=== PATIENT | female | born 1970 | race Caucasian/White ===

== ENCOUNTER 2020-06-09 16:17 | Outpatient (CLI) | payer BC, SELFPAY ==
[2020-06-09 17:10] LABS: Add Urine Microscopic? YES; Amorphous Sediment Urine Few; Appearance Urine Clear (Clear); Bacteria Urine Trace /hpf; Bilirubin Urine Negative (Negative); Blood Urine Negative (Negative); Color Urine Straw (Yellow); Glucose Urine UA Negative (Negative); Ketones Urine Negative (Negative); Leukocyte Esterase Ur 1+ LEU/UL (NEGATIVE); Nitrate Urine Negative (Negative); Protein Urine Negative (Negative); RBC Urine 0-2 /hpf (0-2); Specific Grav Ur 1.011 (1.001-1.035); Squamous Epithelial Cell Urine Occasional /hpf (Few); Urobilinogen Urine Negative mg/dL (<2.0)
== END 2020-06-09 16:18 | disposition home or self-care (01) ==
LOC: ANHLAB 16:19
PROVIDERS: PCP Physician Assistant; Visit Provider Physician Assistant
DX: R30.0 Dysuria (principal)
CPT/HCPCS: 81001; 87086

== ENCOUNTER 2020-06-21 07:01 | Outpatient (CLI) | payer BC, SELFPAY ==
--- NOTE | ~2020-06-21 | US_ITS ---
US abdomen complete EXAMINATION: US Abdomen Complete INDICATION: Abdomen pain. UTI. PROCEDURE: Realtime High Resolution abdomen ultrasound. COMPARISON: No prior studies for comparison FINDINGS: Gallbladder is surgically absent. Common bile duct measures 4 mm. Liver echotexture within normal limits without focal mass. Pancreas within normal limits. Pancreati c tail is obscured by bowel gas. Spleen is unremarkeable. Renal echotexture is within normal limits bilaterally without hydronephrosis, contour deforming mass or renal stone. Right kidney measures 10.5 cm. Left kidney measures 10.4 cm. Visualized aspects of the aorta and IVC are within normal limits. Portal vein is patent. No sonograph ic Brink's sign indicated by the technologist. IMPRESSION: 1: Unremarkable abdominal ultrasound post cholecystectomy. Reviewed, dictated and finalized at location A.
== END 2020-06-21 07:02 | disposition home or self-care (01) ==
PROVIDERS: PCP Physician Assistant; Visit Provider Physician Assistant
DX: N39.0 Urinary tract infection, site not specified (principal); R10.9 Unspecified abdominal pain
CPT/HCPCS: 76700

== ENCOUNTER 2020-07-14 13:18 | Outpatient (CLI) | payer BC, SELFPAY ==
--- NOTE | ~2020-07-14 | CT_ITS ---
EXAMINATION: CT abdomen pelvis w con EXAM DATE: 07/14/2020 14:04 INDICATION: Lower abd pain R10.30 - Lower abdominal pain, unspecified TECHNIQUE: Spiral CT of the abdomen and pelvis was performed following intravenous injection of 100 m L Omnipaque 350. Axial, coronal and sagittal images were reviewed. The dose-length product (DLP) fo r this examination was 864.01 mGy-cm. The exposure was tailored according to patient size (auto mA e xposure control), and iterative reconstruction (ASIR) was used as additional dose reduction technique . There is no prior study for comparison. FINDINGS: The liver, spleen, adrenal glands and pancreas are unremarkable. Gallbladder is unremarkab le. No biliary obstruction. Portal and splenic veins are patent. Kidneys enhance symmetrically. T here is no hydronephrosis. Fibroid uterus. The bladder is unremarkable. There is no retroperitone al or pelvic lymphadenopathy. The appendix is normal. The stomach and small bowel are unremarkable. There is expected amount of c olonic stool. No free intraperitoneal gas. The heart is normal in size. There are no pericardial or pleural effusions. The lung bases are unremarkable. Moderate to severe lumbar disc disease and mild to moderate levoscoliosis. IMPRESSION: 1. No acute intra-abdominal findings. 2. Fibroids. Reviewed, dictated and finalized at location B. CTION CONTROL COORDINATOR
== END 2020-07-14 13:19 | disposition home or self-care (01) ==
PROVIDERS: PCP Physician Assistant; Visit Provider Physician Assistant
DX: D25.9 Leiomyoma of uterus, unspecified (principal)
CPT/HCPCS: 74177; Q9967

== ENCOUNTER → 2020-10-17 10:08 | Outpatient (CLI) | payer BC, SELFPAY ==
--- NOTE | ~2020-10-17 | MM_ITS ---
EXAMINATION: MM screening nelida BI w jay HISTORY: Screening mammogram TECHNIQUE: Craniocaudal and mediolateral oblique 3-D tomosynthesis images were obtained and synthetic 2-D images were generated. CAD analysis was submitted and interpreted. COMPARISON: 08/31/2019, 07/02/2018, 06/22/2017 bilateral digital screening mammogram examinations BREAST PARENCHYMAL COMPOSITION: There are scattered areas of fibroglandular density. FINDINGS: Again noted are relatively stable benign calcifications of the breasts. Grouped microcalcif ications in the upper inner quadrant of the right breast previously featured milk of calcium on ML vi ew on diagnostic mammogram of 06/24/2016, consistent with benign process. No suspicious malignant fea tures are noted at the areas of calcification in either breast. There is no evidence of suspicious mass, calcification, or architectural distortion to suggest malig blas in either breast. There has been no suspicious interval change. IMPRESSION: 1. No mammographic evidence of malignancy. 2. Recommend routine screening mammography in one year. BI-RADS Category 2: Benign finding(s). Reviewed, dictated and finalized at location A. PRESSURE OPERATOR
== END ==
PROVIDERS: PCP Physician Assistant; Visit Provider Obstetrics & Gynecology
DX: Z12.31 Encounter for screening mammogram for malignant neoplasm of breast (principal)
CPT/HCPCS: 77063; 77067

== ENCOUNTER 2021-06-05 07:10 | Outpatient (CLI) | payer BC, SELFPAY ==
[2021-06-05 07:34] LABS: Hematocrit 45.4 % (37.0-47.0); Hemoglobin 15.6 g/dL (12.0-15.0); Mean Corpuscular HGB Conc 34.4 g/dl (32-36); Mean Corpuscular Volume 90.1 fl (80-100); Mean Platelet Volume 9.4 fl (7.4-10.4); Platelet Count Result 227 k/mm3 (150-375); Red Blood Count 5.04 M/mm3 (4.2-5.4); Red Cell Distribution Width 12.1 % (11.5-14.5); White Blood Count 6.4 K/mm3 (4.5-10.0)
[2021-06-05 08:39] LABS: Alanine Aminotransferase 32 U/L (4-35); Albumin Level 4.6 g/dL (3.5-5.1); Alkaline Phosphatase 81 U/L (38-126); Anion Gap 10 mmol/L (8-16); Aspartate Amino Transferase 32 U/L (14-36); Bilirubin,Total 0.5 mg/dL (0.2-1.3); Blood Urea Nitrogen 9 mg/dL (7-17); Carbon Dioxide 23 mmol/L (22-30); Chloride 105 mmol/L (98-107); Cholesterol 143 mg/dL (0-200); Estimated Glomerular Filt Rate > 60; Glucose 116 mg/dL (65-110); HDL Direct 60 mg/dL; Potassium 4.2 mmol/L (3.4-5.0); Sodium 138 mmol/L (137-145); Triglycerides 76 mg/dL (<150)
[2021-06-05 08:50] LABS: LDL Cholesterol Direct 61 mg/dL
[2021-06-05 09:07] LABS: Hemoglobin A1C 5.8 % (<5.7)
[2021-06-05 09:11] LABS: Thyroid Stimulating Hormone 0.998 uIU/mL (0.465-4.680)
[2021-06-05 09:48] LABS: Folic Acid > 20.0 ng/mL (2.76->20)
== END 2021-06-05 07:11 | disposition home or self-care (01) ==
PROVIDERS: PCP Physician Assistant; Visit Provider Physician Assistant
DX: Z00.00 Encounter for general adult medical examination without abnormal findings (principal); R73.9 Hyperglycemia, unspecified
CPT/HCPCS: 36415; 80053; 80061; 82607; 82746; 83036; 84443; 85027

== ENCOUNTER → 2021-11-26 15:00 | Outpatient (CLI) | payer BC, SELFPAY ==
--- NOTE | ~2021-11-26 | MM_ITS ---
EXAMINATION: MM screening nelida BI w jay HISTORY: Screening mammogram, family history of breast cancer in her mother. TECHNIQUE: Craniocaudal and mediolateral oblique 3-D tomosynthesis images were obtained and synthetic 2-D images were generated. CAD analysis was submitted and interpreted. COMPARISON: 10/17/2020, 08/31/2019, 07/02/2018 BREAST PARENCHYMAL COMPOSITION: There are scattered areas of fibroglandular density. FINDINGS: Scattered benign-appearing calcifications are present. There is no suspicious mass, calcifi cation, or architectural distortion to suggest malignancy in either breast. There has been no suspici ous interval change. IMPRESSION: 1. No mammographic evidence of malignancy. 2. Recommend routine screening mammography in one year. BI-RADS Category 2: Benign finding(s). Reviewed, dictated and finalized at location A.
== END ==
PROVIDERS: PCP Physician Assistant; Visit Provider Obstetrics & Gynecology
DX: Z12.31 Encounter for screening mammogram for malignant neoplasm of breast (principal)
CPT/HCPCS: 77063; 77067

== ENCOUNTER 2022-07-18 16:03 | Outpatient (CLI) | payer BC, SELFPAY ==
--- NOTE | ~2022-07-18 | US_ITS ---
EXAMINATION: US pelvic complete w TV DATE: 07/18/2022 17:11 INDICATION: Leiomyoma of the uterus seen on CT TECHNIQUE: Multiple transabdominal sonographic images of the pelvis were obtained. Patient did not t olerate transvaginal examination resulting in significantly limited evaluation. COMPARISON: CT, 07/14/2020 FINDINGS: The uterus measures 9.1 x 4.1 x 4.9 cm. Known uterine fibroids are not identified. The endo metrial complex is not well demonstrated. The ovaries are not visualized however no adnexal abnormali ty is seen. There is no free fluid in the pelvis. IMPRESSION: 1. Exam significantly limited by transabdominal only technique. Known uterine fibroids not identified . Reviewed, dictated and finalized at location B. SOURCE OPERATOR IMPRESSION: 1. Exam significantly limited by transabdominal only technique. Known uterine f ibroids not identified.
== END 2022-07-18 16:04 | disposition home or self-care (01) ==
PROVIDERS: PCP Physician Assistant; Visit Provider Obstetrics & Gynecology
DX: D25.9 Leiomyoma of uterus, unspecified (principal)
CPT/HCPCS: 76830; 76856

== ENCOUNTER 2023-01-20 00:30 | Emergency (ER) | payer OTHER, SELFPAY ==
[2023-01-20] VITALS (23 sets, daily range): BP systolic 95–133; BP diastolic 58–88; PULSE 76–121; RESP 14–25; TEMP 36.6; O2SAT 98–100
--- NOTE | ~2023-01-20 | CT_ITS ---
Non-contrast Head CT History: Syncope, head injury Technique: Axial non-contrast imaging of the brain was performed. Dose reduction technique was used on this scan by utilizing automated exposure control and iterative reconstruction technique. The dose -length product (DLP) was 1210.67 mGy-cm. Findings: There is no evidence of intracranial hemorrhage, mass lesion, or acute infarct. Brain par enchyma appears normal. The ventricles and subarachnoid spaces are normal in size. The calvarium ap pears normal. The visualized paranasal sinuses and mastoid air cells are clear. Impression: No significant abnormality seen. Reviewed, dictated and finalized at location . Impression: No significant abnormality seen.
--- NOTE | ~2023-01-20 | XR_ITS ---
Portable chest x-ray Comparison: None Clinical History: Syncope Findings: Lungs are clear, without focal consolidation or pleural effusion. Cardiomediastinal silho uette is stable. Bones and soft tissues are unremarkable. Impression: Normal chest. Reviewed, dictated and finalized at location M. Impression: Normal chest.
--- NOTE | 2023-01-20 01:01 | ECG_ITS ---
Measurements Intervals [place] Rate: 90 P: 52 MI: 142 QRS: 10 QRSD: 105 T: 28 QT: 345 QTc: 423 Interpretive Statements SINUS RHYTHM CONSIDER INFERIOR INFARCT, AGE INDETERMINATE ABNORMAL ECG NO PREVIOUS ECG AVAILABLE FOR COMPARISON Electronically Signed On 01-20-2023 6:31:17 CDT by Hernan Abel D.O.
[2023-01-20] MEDS: SODIUM CHLORIDE 0.9% IV 2,000 ML 999 ML IV CONT ×2 (01:29→04:31)
[2023-01-20] MEDS: TETANUS,DIPHTHERIA,AC PERTUSSIS ADULT (0.5 ML) BOOSTRIX IM (01:29)
[2023-01-20 01:32] LABS: Basophils Percent Auto 0.2 % (0.2-1.2); Eosinophils Percent Auto 0.2 % (0-4.4); Hematocrit 49.5 % (37.0-47.0); Hemoglobin 16.5 g/dL (12.0-15.0); Immature Granulocyte Absolute 0.03 K/mm3 (0.00-0.031); Immature Granulocyte Percent A 0.3 % (0-0.5); Lymphocytes Absolute Auto 1.15 K/mm3 (0.9-3.2); Lymphocytes Percent Auto 9.7 % (18.3-44.2); Mean Corpuscular HGB Conc 33.3 g/dl (32-36); Mean Corpuscular Hemoglobin 30.2 pg (26-34); Mean Corpuscular Volume 90.7 fl (80-100); Mean Platelet Volume 9.6 fl (7.4-10.4); Monocytes Absolute Auto 0.5 K/mm3 (0.1-0.6); Monocytes Percent Auto 4.5 % (2.6-8.5); Neutrophils Absolute Auto 10.1 K/mm3 (1.3-6.7); Neutrophils Percent Auto 85.1 % (45.5-73.1); Platelet Count Result 229 k/mm3 (150-375); Red Blood Count 5.46 M/mm3 (4.2-5.4); Red Cell Distribution Width 12.4 % (11.5-14.5); White Blood Count 11.9 K/mm3 (4.5-10.0)
[2023-01-20 01:42] LABS: Anion Gap 9 mmol/L (8-16); Blood Urea Nitrogen 19 mg/dL (7-17); Calcium 9.1 mg/dL (8.4-10.2); Carbon Dioxide 22 mmol/L (22-30); Chloride 104 mmol/L (98-107); Estimated CRCL calculation 82 ml/min; Estimated Glomerular Filt Rate > 60; Glucose 180 mg/dL (65-110); Sodium 135 mmol/L (137-145)
--- NOTE | 2023-01-20 02:19 | ED.GENADULT ---
HPI - General Adult General Chief complaint: Head Injury Stated complaint: syncope?, head injury Time Seen by Provider: 01/20/23 00:48 History of Present Illness HPI narrative: This is a 52-year-old female presenting ED with chief complaint of syncope and head laceration. Patient said that she got up from sleep and was feeling slightly dizzy. She sat on the toilet to have a bowel movement. She then had a syncopal event and struck the side of her head on the toilet. She then returned her baseline mental status and drove herself to the emergency department. Patient does not know her last tetanus shot was. She does not use blood thinners. Patient says that she has had diarrhea today and this felt similar in the past when she was dehydrated. Patient denies neck pain, numbness tingling weakness to any extremity, chest pain difficulty breathing abdominal pain or urinary symptoms. Related Data Home Medications Medication Instructions Recorded Confirmed Lactobacillus acidophilus 10,000 mmu cells PO DAILY 12/07/20 07/08/22 (Acidophilus capsule) calcium carbonate 600 mg calcium 600 mg PO DAILY 12/07/20 07/08/22 (1,500 mg) tablet cholecalciferol (vitamin D3) 25 25 mcg PO DAILY 12/07/20 07/08/22 mcg (1,000 unit) capsule cranberry 500 mg capsule 15,000 mg PO DAILY 12/07/20 07/08/22 dktzwwgcrwt-E-Lsveydatzpwuupozod tablet PO 12/07/20 07/08/22 500 mg-200 mg tablet nqtmsxus-wzyqpmj-hpry-lutein tablet tablet PO 12/07/20 07/08/22 vitamin B complex (B 1 tablet PO DAILY 06/21/21 07/08/22 Complex-Vitamin B12 tablet) Allergies Allergy/AdvReac Type Severity Reaction Status Date / Time Sulfa (Sulfonamide Allergy Mild HIGH FEVER Verified 01/20/23 00:59 Antibiotics) PMFSH Past Medical History Medical History Arthritis Diabetes Urinary incontinence Surgical History Surgical History H/O eye surgery History of breast surgery cyst removed History of ear surgery cyst removed History of removal of skin mole Hx of cholecystectomy Hx of removal of ovary right Family History Family History Father Heart disease Diabetes mellitus Malignant neoplasm of prostate Mother Breast cancer Heart disease Diabetes mellitus Grandparent ALS (amyotrophic lateral sclerosis) Social History Social History Smoking status: Never smoker Alcohol intake: never Substance use: never Lack of Transportation: No Lack of Food: Never True Current Housing: I Have Housing Concerned About Future Housing: No Difficulty Paying Gas/Electric Bills: No Difficulty Paying for Meds: No Currently Unemployed: No Education: Associate Degree Difficulty w/ Childcare or Family Care: No Exam Narrative: APPEARANCE: No apparent distress. Head: 5 cm laceration to the right parietal scalp region EYES: EOMI, NOSE: Atraumatic NECK: Trachea midline, no midline cervical tenderness, full range of movement without pain or paresthesias. RESPIRATORY: No increased rate of breathing Clear to auscultation CARDIOVASCULAR: RRR, no peripheral edema ABDOMINAL: Non-distended, soft nontender no guarding rebound MUSCULOSKELETAl: No obvious deformities NEURO: Alert. Cranial nerves 2-12 grossly intact. Sensation light touch, motor function cerebellar function intact for 4 extremities. Gait exam was normal. SKIN:: Warm, dry. Normal color PSYCHIATRIC: Normal affect Course Vital Signs Vital signs: Vital Signs Temperature 97.8 F 01/20/23 00:41 Pulse Rate 97 01/20/23 00:41 Respiratory Rate 16 01/20/23 00:41 Blood Pressure 95/58 L 01/20/23 00:41 Pulse Oximetry 100 01/20/23 00:41 Oxygen Delivery Room Air 01/20/23 00:41 Temperature 97.8 F 01/20/23 00:41 Pulse Rate 97
--- NOTE | 2023-01-20 04:29 | PC.NURSE ---
patient walking pulse ox 130-132, dr. spangler notified
--- NOTE | 2023-01-20 05:17 | ECG_ITS ---
Measurements Intervals [place] Rate: 90 P: 52 NM: 142 QRS: 10 QRSD: 105 T: 28 QT: 345 QTc: 423 Interpretive Statements SINUS RHYTHM CONSIDER INFERIOR INFARCT, AGE INDETERMINATE BASELINE ARTIFACT- I, II, AVR, AVL ABNORMAL ECG NO PREVIOUS ECG AVAILABLE FOR COMPARISON Electronically Signed On 01-20-2023 20:14:56 CDT by Hernan Abel D.O.
== END 2023-01-20 06:04 | disposition home or self-care (01) ==
PROVIDERS: Emergency Provider Emergency Medicine; PCP Physician Assistant
DX: R55 Syncope and collapse (principal); S01.01XA Laceration without foreign body of scalp, initial encounter; E86.0 Dehydration; Z23 Encounter for immunization; E11.9 Type 2 diabetes mellitus without complications; M19.90 Unspecified osteoarthritis, unspecified site; Z90.49 Acquired absence of other specified parts of digestive tract; R94.31 Abnormal electrocardiogram [ECG] [EKG]; W18.12XA Fall from or off toilet with subsequent striking against object, initial encounter
CPT/HCPCS: 12032; 36415; 70450; 71045; 80048; 85025; 90471; 90715; 93005; 96360; 96361; 99284; J7030

== ENCOUNTER 2023-02-04 06:52 | Outpatient (CLI) | payer OTHER, SELFPAY ==
[2023-02-04 08:21] LABS: Basophils Percent Auto 0.2 % (0.2-1.2); Eosinophils Absolute Auto 0.1 K/mm3 (0-0.3); Eosinophils Percent Auto 0.6 % (0-4.4); Hemoglobin 14.4 g/dL (12.0-15.0); Immature Granulocyte Absolute 0.04 K/mm3 (0.00-0.031); Immature Granulocyte Percent A 0.4 % (0-0.5); Lymphocytes Absolute Auto 1.94 K/mm3 (0.9-3.2); Mean Corpuscular Hemoglobin 29.3 pg (26-34); Mean Corpuscular Volume 91.6 fl (80-100); Mean Platelet Volume 10.4 fl (7.4-10.4); Monocytes Absolute Auto 1.2 K/mm3 (0.1-0.6); Monocytes Percent Auto 11.1 % (2.6-8.5); Neutrophils Absolute Auto 7.5 K/mm3 (1.3-6.7); Neutrophils Percent Auto 69.7 % (45.5-73.1); Platelet Count Result 235 k/mm3 (150-375); Red Blood Count 4.91 M/mm3 (4.2-5.4); Red Cell Distribution Width 12.2 % (11.5-14.5); White Blood Count 10.8 K/mm3 (4.5-10.0)
[2023-02-04 08:41] LABS: Alanine Aminotransferase 27 U/L (6-35); Albumin Level 4.3 g/dL (3.5-5.1); Alkaline Phosphatase 93 U/L (38-126); Anion Gap 6 mmol/L (8-16); Aspartate Amino Transferase 25 U/L (14-36); Bilirubin,Total 0.8 mg/dL (0.2-1.3); Blood Urea Nitrogen 8 mg/dL (7-17); Calcium 9.1 mg/dL (8.4-10.2); Carbon Dioxide 30 mmol/L (22-30); Chloride 101 mmol/L (98-107); Cholesterol 104 mg/dL (0-200); Estimated Glomerular Filt Rate > 60; Glucose 144 mg/dL (65-110); HDL Direct 43 mg/dL; Potassium 4.1 mmol/L (3.4-5.0); Sodium 137 mmol/L (137-145); Triglycerides 77 mg/dL (<150)
[2023-02-04 08:52] LABS: LDL Cholesterol Direct 41 mg/dL
[2023-02-04 09:07] LABS: Iron 51 ug/dL (37-170)
[2023-02-04 09:11] LABS: Thyroid Stimulating Hormone 0.548 uIU/mL (0.465-4.680)
[2023-02-04 09:16] LABS: Percent Iron Saturation 15 % (20-50)
[2023-02-04 09:47] LABS: Folic Acid > 20.0 ng/mL (2.76->20)
[2023-02-04 10:52] LABS: Hemoglobin A1C 6.3 % (<5.7)
== END 2023-02-04 06:53 | disposition home or self-care (01) ==
LOC: ANHLAB 06:54
PROVIDERS: PCP Physician Assistant; Visit Provider Physician Assistant
DX: Z00.00 Encounter for general adult medical examination without abnormal findings (principal); R73.9 Hyperglycemia, unspecified; D58.2 Other hemoglobinopathies
CPT/HCPCS: 36415; 80053; 80061; 82607; 82746; 83036; 83540; 83550; 84443; 85025

== ENCOUNTER 2023-02-08 08:25 | Emergency (ER) | payer OTHER, SELFPAY ==
--- NOTE | 2023-02-08 08:50 | P.SPORTS_ITS ---
FORMERLY [facility] Past Medical History Medical History Arthritis Diabetes Urinary incontinence Surgical History Surgical History H/O eye surgery History of breast surgery cyst removed History of ear surgery cyst removed History of removal of skin mole Hx of cholecystectomy Hx of removal of ovary right Family History Family History Father Heart disease Diabetes mellitus Malignant neoplasm of prostate Mother Breast cancer Heart disease Diabetes mellitus Grandparent ALS (amyotrophic lateral sclerosis) Social History Social History Smoking status: Never smoker Alcohol intake: never Substance use: never Lack of Transportation: No Lack of Food: Never True Current Housing: I Have Housing Concerned About Future Housing: No Difficulty Paying Gas/Electric Bills: No Difficulty Paying for Meds: No Currently Unemployed: No Education: Associate Degree Difficulty w/ Childcare or Family Care: No Allergies: Allergies Allergy/AdvReac Type Severity Reaction Status Date / Time Sulfa (Sulfonamide Allergy Mild HIGH FEVER Verified 02/08/23 08:35 Antibiotics) Home Medications: Home Medications Medication Instructions Recorded Confirmed Lactobacillus acidophilus 10,000 mmu cells PO DAILY 12/07/20 02/08/23 (Acidophilus capsule) calcium carbonate 600 mg calcium 600 mg PO DAILY 12/07/20 02/08/23 (1,500 mg) tablet cholecalciferol (vitamin D3) 25 25 mcg PO DAILY 12/07/20 02/08/23 mcg (1,000 unit) capsule cranberry 500 mg capsule 15,000 mg PO DAILY 12/07/20 02/08/23 ojjxbnbjlkm-W-Pbdxmtuuuoayflrndy 2 tablet PO DAILY 12/07/20 02/08/23 500 mg-200 mg tablet qwzkbsvr-nnffwky-wzle-lutein tablet 1 tablet PO DAILY 12/07/20 02/08/23 vitamin B complex (B 1 tablet PO DAILY 06/21/21 02/08/23 Complex-Vitamin B12 tablet) Services Provided Sports Physical Completed: Mae Pascual Ben was seen today, 02/08/23, for a sports physical. The paper physical form was completed and scanned into the chart. The original paper physical form was given to the patient for submission to their school. Discharge Plan Discharge Prescriptions: No Action calcium carbonate 600 mg calcium (1,500 mg) tablet 600 mg PO DAILY yikahgad-iwuhqnb-kvek-lutein Tablet 1 tablet PO DAILY cranberry 500 mg capsule 15,000 mg PO DAILY Rx Instructions: administer with meals Lactobacillus acidophilus [Acidophilus] Capsule 10,000 mmu cells PO DAILY Rx Instructions: administer with a meal yymmqgtsxqt-W-Olzgrwincsgvzxf 500-200 mg tablet 2 tablet PO DAILY cholecalciferol (vitamin D3) 25 mcg (1,000 unit) capsule 25 mcg PO DAILY vitamin B complex [B Complex-Vitamin B12] Tablet 1 tablet PO DAILY Follow-up/Referrals: Dk Felix PA-C [Primary Care Provider] -
--- NOTE | 2023-02-08 08:51 | ED.WOUNDLAC ---
HPI - Wound/Laceration General Chief Complaint: Wound/Laceration Stated Complaint: leaking cyst Time Seen by Provider: 02/08/23 08:51 Source: patient Mode of arrival: ambulatory Limitations: no limitations History of Present Illness HPI narrative: 52y/o female with hx diabetes presented for c/o draining wound to right upper back. First noticed tenderness about 2 weeks ago. Became more painful and popped last night. Has continued to drain, and reports foul smell. She did not apply anything to the site. Denies any other skin lesions. Denies n/v/d/f/c. Stated today's BS 188. Had blood work this week with pcp. Related Data Home Medications Medication Instructions Recorded Confirmed Lactobacillus acidophilus 10,000 mmu cells PO DAILY 12/07/20 02/08/23 (Acidophilus capsule) calcium carbonate 600 mg calcium 600 mg PO DAILY 12/07/20 02/08/23 (1,500 mg) tablet cholecalciferol (vitamin D3) 25 25 mcg PO DAILY 12/07/20 02/08/23 mcg (1,000 unit) capsule cranberry 500 mg capsule 15,000 mg PO DAILY 12/07/20 02/08/23 vhofemifkkq-T-Hpvolevvktiqukwxdy 2 tablet PO DAILY 12/07/20 02/08/23 500 mg-200 mg tablet uebwsbka-acuciyn-vlow-lutein tablet 1 tablet PO DAILY 12/07/20 02/08/23 vitamin B complex (B 1 tablet PO DAILY 06/21/21 02/08/23 Complex-Vitamin B12 tablet) Allergies Allergy/AdvReac Type Severity Reaction Status Date / Time Sulfa (Sulfonamide Allergy Mild HIGH FEVER Verified 02/08/23 08:35 Antibiotics) Review of Systems Review of Systems: CONSTITUTIONAL: Denies body aches, fever, chills, or sweats. EYES: Denies visual changes, redness, or discharge. ENT: Denies rhinorrhea, congestion CARDIOVASCULAR: Denies chest pain, palpitations, or edema. RESPIRATORY: Denies cough or dyspnea. GASTROINTESTINAL: Denies abdominal pain, nausea, vomiting, or diarrhea. SKIN: per HPI MUSCULOSKELETAL: Denies back pain, joint pain, or myalgia. NEUROLOGIC: Denies headache, numbness, tingling, or weakness. [facility] Past Medical History Medical History Arthritis Diabetes Urinary incontinence Surgical History Surgical History H/O eye surgery History of breast surgery cyst removed History of ear surgery cyst removed History of removal of skin mole Hx of cholecystectomy Hx of removal of ovary right Family History Family History Father Heart disease Diabetes mellitus Malignant neoplasm of prostate Mother Breast cancer Heart disease Diabetes mellitus Grandparent ALS (amyotrophic lateral sclerosis) Social History Social History Smoking status: Never smoker Alcohol intake: never Substance use: never Lack of Transportation: No Lack of Food: Never True Current Housing: I Have Housing Concerned About Future Housing: No Difficulty Paying Gas/Electric Bills: No Difficulty Paying for Meds: No Currently Unemployed: No Education: Associate Degree Difficulty w/ Childcare or Family Care: No Comments At time of signature, I have reviewed and agree with nursing past medical, surgical, social and family history unless otherwise noted. Please see nursing chart for further information. There is no relevant family history pertinent to the presenting complaint Exam Narrative: GENERAL: Well-appearing HEAD: Normocephalic, atraumatic. EYES: conjunctivae clear, and EOMI. ENT: Mucous membranes moist. Oropharynx without edema, erythema or lesions. NECK: Supple. No lymphadenopathy CHEST: Clear to auscultation. HEART: Regular rate and rhythm. SKIN: Warm, dry. Approximately 8 cm diameter area of induration to right upper back, center is fluctuant, open center at 2 sites approx 3mm and 2mm and actively draining serosanguineous fluid. Extreme foul od
[2023-02-08 09:12] VITALS: BP 122/73; PULSE 119; RESP 20; TEMP 36.3; O2SAT 99
[2023-02-08] MEDS: NACL 0.9% IRRIG BAG 1,000 ML 1000 ML IRRIGATION ×2 (09:20→09:21)
== END 2023-02-08 09:50 | disposition home or self-care (01) ==
PROVIDERS: Emergency Provider Nurse Practitioner Family; PCP Physician Assistant
DX: L02.212 Cutaneous abscess of back [any part, except buttock and flank] (principal); M19.90 Unspecified osteoarthritis, unspecified site; E11.9 Type 2 diabetes mellitus without complications
CPT/HCPCS: 99213; G0463; J7030

== ENCOUNTER → 2023-02-21 15:34 | Outpatient (CLI) | payer OTHER, SELFPAY ==
--- NOTE | ~2023-02-21 | MM_ITS ---
EXAMINATION: MM screening nelida BI w jay HISTORY: Screening mammogram TECHNIQUE: Craniocaudal and mediolateral oblique 3-D tomosynthesis images were obtained and synthetic 2-D images were generated. CAD analysis was submitted and interpreted. COMPARISON: 11/26/2021, , 08/31/2019 bilateral screening mammogram examinations BREAST PARENCHYMAL COMPOSITION: There are scattered areas of fibroglandular density. FINDINGS: There is minimal asymmetrical-defined increased density in the posterior inner left breast on CC projection. Diagnostic left mammogram is recommended, with ultrasound if required. Otherwise there is no evidence of suspicious mass, calcification, or architectural distortion to sugg est malignancy in either breast. There has been no other suspicious interval change. IMPRESSION: 1. New ill-defined asymmetry in the posterior inner left breast on CC projection 2. Diagnostic right mammogram is recommended, with ultrasound if required BI-RADS Category 0: Incomplete: Needs additional imaging evaluation. Reviewed, dictated and finalized at location A. IMPRESSION: 1. New ill-defined asymmetry in the posterior inner left breast on CC projectio n 2. Diagnostic right mammogram is recommended, with ultrasound if required BI-RADS Category 0: Incomplete: Needs additional imaging evaluation.
== END ==
PROVIDERS: PCP Physician Assistant; Visit Provider Obstetrics & Gynecology
DX: Z12.31 Encounter for screening mammogram for malignant neoplasm of breast (principal); R92.8 Other abnormal and inconclusive findings on diagnostic imaging of breast
CPT/HCPCS: 77063; 77067

== ENCOUNTER → 2023-03-24 13:49 | Outpatient (CLI) | payer OTHER, SELFPAY ==
--- NOTE | ~2023-03-24 | MM_ITS ---
EXAMINATION: MM diagnostic nelida LT w jay HISTORY: Small asymmetric density in the posterior inner left breast on screening craniocaudal view o f 02/21/2023 TECHNIQUE: Additional 3-D tomosynthesis images of the left breast were performed and synthetic 2-D im ages were generated. CAD analysis was submitted and interpreted. COMPARISON: Serial screening mammograms dating from 02/21/2023 back to 08/31/2019 FINDINGS: The small opacity in the posterior inner left breast on CC projection of 03/10/2023 is not c onfirmed on cone compression CC view of 03/24/2023. IMPRESSION: 1. No mammographic evidence of malignancy 2. Routine annual mammographic screening is recommended BI-RADS Category 1: Negative Reviewed, dictated and finalized at location A.
== END ==
PROVIDERS: PCP Obstetrics & Gynecology; Visit Provider Obstetrics & Gynecology
DX: R92.8 Other abnormal and inconclusive findings on diagnostic imaging of breast (principal)
CPT/HCPCS: 77061; 77065; G0279

== ENCOUNTER 2024-04-27 06:53 | Outpatient (CLI) | payer OTHER, SELFPAY ==
[2024-04-27 07:07] LABS: Basophils Percent Auto 0.4 % (0.2-1.2); Eosinophils Absolute Auto 0.1 K/mm3 (0-0.3); Hematocrit 48.2 % (37.0-47.0); Hemoglobin 15.9 g/dL (12.0-15.0); Immature Granulocyte Absolute 0.01 K/mm3 (0.00-0.031); Immature Granulocyte Percent A 0.2 % (0-0.5); Lymphocytes Absolute Auto 2.52 K/mm3 (0.9-3.2); Mean Corpuscular Hemoglobin 30.1 pg (26-34); Mean Corpuscular Volume 91.3 fl (80-100); Mean Platelet Volume 9.4 fl (7.4-10.4); Monocytes Absolute Auto 0.5 K/mm3 (0.1-0.6); Neutrophils Absolute Auto 2.2 K/mm3 (1.3-6.7); Neutrophils Percent Auto 41.4 % (45.5-73.1); Platelet Count Result 195 k/mm3 (150-375); Red Blood Count 5.28 M/mm3 (4.2-5.4); Red Cell Distribution Width 12.4 % (11.5-14.5); White Blood Count 5.3 K/mm3 (4.5-10.0)
[2024-04-27 07:17] LABS: Alanine Aminotransferase 50 U/L (6-35); Albumin Level 4.4 g/dL (3.5-5.1); Alkaline Phosphatase 81 U/L (38-126); Anion Gap 8 mmol/L (4-12); Aspartate Amino Transferase 38 U/L (14-36); Bilirubin,Total 0.5 mg/dL (0.2-1.3); Blood Urea Nitrogen 16 mg/dL (7-17); Calcium 9.2 mg/dL (8.4-10.2); Carbon Dioxide 29 mmol/L (22-30); Chloride 102 mmol/L (98-107); Cholesterol 143 mg/dL (0-200); Estimated Glomerular Filt Rate > 60; Glucose 115 mg/dL (65-110); HDL Direct 66 mg/dL; Potassium 4.5 mmol/L (3.4-5.0); Sodium 139 mmol/L (137-145); Triglycerides 56 mg/dL (<150)
[2024-04-27 07:22] LABS: Hemoglobin A1C 6.1 % (<5.7)
[2024-04-27 07:27] LABS: LDL Cholesterol Direct 53 mg/dL
[2024-04-27 08:24] LABS: Folic Acid > 20.0 ng/mL (2.76->20)
== END 2024-04-27 06:54 | disposition home or self-care (01) ==
LOC: ANHLAB 06:55
PROVIDERS: PCP Obstetrics & Gynecology; Visit Provider Physician Assistant
DX: Z00.00 Encounter for general adult medical examination without abnormal findings (principal); R73.9 Hyperglycemia, unspecified
CPT/HCPCS: 36415; 80053; 80061; 82607; 82746; 83036; 84443; 85025

== ENCOUNTER 2024-05-01 14:56 | Outpatient (CLI) | payer OTHER, SELFPAY ==
--- NOTE | ~2024-05-01 | MM_ITS ---
EXAMINATION: MM screening nelida BI w jay HISTORY: Screening TECHNIQUE: Craniocaudal and mediolateral oblique 3-D tomosynthesis images were obtained and synthetic 2-D images were generated. CAD analysis was submitted and interpreted. COMPARISON: Comparison to multiple prior studies sequentially, with oldest reviewed study dated 06/12. BREAST PARENCHYMAL COMPOSITION: Not dense: There are scattered areas of fibroglandular density. FINDINGS: There is no evidence of suspicious mass, calcification, or architectural distortion to sugg est malignancy in either breast. There has been no suspicious interval change. IMPRESSION: 1. No mammographic evidence of malignancy. 2. Recommend routine screening mammography in one year. BI-RADS Category 1: Negative Reviewed, dictated and finalized at location B.
== END 2024-05-01 14:57 ==
LOC: MICIMG 14:57
PROVIDERS: PCP Obstetrics & Gynecology; Visit Provider Obstetrics & Gynecology
DX: Z12.31 Encounter for screening mammogram for malignant neoplasm of breast (principal)
CPT/HCPCS: 77063; 77067

== ENCOUNTER 2024-09-07 09:09 | Outpatient (CLI) | payer OTHER, SELFPAY | END 2024-09-07 09:10 | disposition home or self-care (01) | LOC: ANHLAB 09:10 | PROVIDERS: PCP Obstetrics & Gynecology; Visit Provider Internal Medicine | DX: R79.89 Other specified abnormal findings of blood chemistry (principal) | CPT/HCPCS: 36415; 80076 ==

== ENCOUNTER 2024-09-09 15:46 | Outpatient (CLI) | payer OTHER, SELFPAY ==
[2024-09-09 16:16] LABS: Alanine Aminotransferase 47 U/L (6-35); Albumin Level 4.6 g/dL (3.5-5.1); Alkaline Phosphatase 84 U/L (38-126); Aspartate Amino Transferase 39 U/L (14-36); Bilirubin,Total 0.4 mg/dL (0.2-1.3)
== END 2024-09-09 15:47 | disposition home or self-care (01) ==
LOC: ANHLAB 15:47
PROVIDERS: PCP Obstetrics & Gynecology; Visit Provider Internal Medicine
DX: R79.89 Other specified abnormal findings of blood chemistry (principal)
CPT/HCPCS: 36415; 80076

== ENCOUNTER 2024-10-03 07:11 | Outpatient (CLI) | payer OTHER, SELFPAY ==
--- NOTE | ~2024-10-03 | US_ITS ---
Limited Abdominal Sonogram: Real-time sonographic imaging of the right upper quadrant was performed. Clinical History: Abnormal blood chemistry findings Findings: The liver appears normal with no evidence of mass lesion or bile duct dilatation. Main por brice vein demonstrates normal direction of flow. The gallbladder is absent, compatible prior cholecyst ectomy. The common bile duct measures 4 mm. The visualized pancreas, aorta, and IVC are unremarkable . Impression: No significant abnormality seen. Status post cholecystectomy. Reviewed, dictated and finalized at location . LESS CONSTRUCTION MANAGER Impression: No significant abnormality seen. Status post cholecystectomy.
--- OUTSIDE RECORDS SUMMARY | 2024-10-04 03:47 | XMS_ITS | Data Portability ---
Author Organization [facility] [place] Address [address] [place] [address] Assessment Encounter Date Assessment Date Assessment LastModified by Organization Details LastModified Time 01/11/2021 01/11/2021 Annual gynecological exam performed. Patient will come back in a year unless there are new symptoms. Not available 01/11/2021 16:47:38 Plan of Treatment Reminders Order Date Submit Date Provider Last Modified By Organization Details Last Modified Time Details Appointments None record ed. Lab None record ed. Referral None record ed. Procedures None record ed. Surgeries None record ed. Imaging None record ed. Medication Orders None record ed. Patient TargetsNo targets recorded. Patient InstructionsNo instructions recorded. Reason for Referral None Reported. Results Created Date Observation Date Name Description Value Unit Range Abnormal Flag Note LastModifiedBy Organization Detail LastModifiedTime 01/12/20 21 01/11/2021 pap, IG + HR HPV image guided Pap, HPV regardless of Pap result SEE RESULT S BELOW CASE REPOR T: Cytol ogy Gynec ologi roxy Repor t Case: [id number] Autho cheryl lock Provi jenny: Mary Pedraza MD Colle cted: 01/11 1710 Order ing Locat ion: [place] [facility] Recei onel: 01/12 0956 First Scree n: Strut z, Willi am, CT Speci men: Scree ren Pap - Image d, Cervi x STATE MENT OF ADEQU ACY: Satis facto ry for evalu ation Trans forma tion zone compo nent absen t FINAL DIAGN OSIS: Negat ahsan for Intra epith elial Lesio n or Steveramesh blas Elect elticia whalen janae d by Ricardo Chi am, CT on 021 at 6:22 AM ----- ----- ----- ----- ----- ----- ----- ----- ----- ----- ----- ----- ----- ----- ----- ----- ----- ---- HPV RESUL TS: HPV mRNA E6/E7 : No HPV mRNA Detec christianne NOTE: This high risk HPV mRNA assay detec ts fourt een high- risk HPV types (16, 18, 31, 33, 35, 39, 45, 51, 52, 56, 58, 59, 66, 68) witho ut diffe renti ation . CHART ABLE COMME NT: Note: This speci men was revie wed by a Cytot echno logis t and/o r Patho logis t (as indic ated in this repor t) after evalu ation using the Thinp rep Imagi ng Syste m. CLINI ROXY INFOR MATIO N: Menst rual Statu s: LMP (if appli cable ): 08/22 Clini roxy Histo ry/Pr eviou s Pap: Type of Neopl ofelia (if appli cable ): Other Histo ry: Hormo randy (if appli cable ): PAP EDUCA KELI L NOTE: The Pap Test is a scree ren test with an inher ent false negat ahsan rate. Liqui d-bas e sampl ing may decre ase, but will not elimi afia, false negat ahsan resul ts. A negat ahsan resul t does not precl ude the prese nce and/o r devel opmen t of disea se, since the prese nce of abnor mal cells in the sampl e depen ds on the locat ion of the lesio n and sampl ing techn ique. [place] nued regul ar scree ren is the best metho d of cance r preve ntion . If repor christianne cytol ogic findi ng do not corre late with physi roxy and/o r histo rical findi ngs, furth er inves tigat ion is recom gabo d, as clini prasanth avilaed. Not Available [facility] (Lab) [address], [place], [address], 01/13/2021 07:25:19 11/27/19 22 11/26/2021 imagi ng/di agnos tic resul t No observ ation record ed. [facility] [address], [place], [address], 12/11/2021 11:43:26 Result Notes None recorded. Problems Name Problem SNOMED Code Status Onset Date Resolution Date Notes Provider Name and Address Organization Details Recorded Time Screenin g for malignan t neoplasm of rectum Completed 201201/11/2021 Screenin g for malignan t neoplasm s of the rectum;P ractice ID: 0001 Kalpana roldan [facility] 16:48:32 Adult health examinat ion Completed 201301/11/2021 Routine general medical examinat ion at a health care facility ;Practic e ID: 0001 Kalpana Flores jamar [facility] 16:48:11 Speciali zed medical examinat ion Completed 201301/11/2021 Routine gynecolo gical examinat ion;Prac zeke ID: 0001 Kalpana Flores jamar [facility] 16:48:38 Screenin g for malignan t neoplasm of cervix Completed 201301/11/2021 Pap Smear;Pr actice ID: 0001 Kalpanamickey Flores jamar [facility] 16:48:[address] Concept Completed 201501/11/2021 Encntr for obstetrics gynecology physician exam (general ) (routine ) w/o abn findings ;Practic e ID: 0001 Kalpana roldan [facility] 05/03/202 1 16:48:36 Lesion of ovary Completed 201601/11/2021 Other ovarian cyst, right side;Pra ctice ID: 0001 Kalpana Flores [facility] 16:48:[address] Concept Completed 201601/11/2021 Encntr for general adult medical exam w/o abnormal findings ;Recorde d Elsewher e: No Locat ion: [facility] S ource: EHR Leave Specialist scott: N Practi ce ID: 0001 Parker lable Time: 02:00:00 PM Kalpanamickey Flores [facility] 16:48:34 Radiolog ic finding [id number] Completed 201401/11/2021 Oth abn and inconclu sive findings on dx imaging of breast;R ecorded Elsewher e: No Locat ion: [facility] S ource: EHR Leave Specialist scott: N Practi ce ID: 0001 Parker lable Time: 01:36:08 PM Kalpana Flores [facility] 16:48:16 Type 2 diabetes mellitus without complica tion [id number] Active 2010 Diabetes Mellitus Type 2, Uncompli cated;Re corded Elsewher e: No Locat ion: [facility] S ource: EHR Leave Specialist scott: Y Practi ce ID: 0001 Parker lable Time: 11:40:22 AM Not Available [facility] 0 15:50:14 Pelvic and perineal pain [id number] Completed 201601/11/2021 Pelvic pain;Rec orded Elsewher e: No Locat ion: [facility] S ource: EHR Leave Specialist scott: N Practi ce ID: 0001 Parker lable Time: 02:00:00 PM Kalpanamickey Flores [facility] 16:48:28 Endometr iosis (clinica l) [id number] Completed 201701/11/2021 Endometr iosis;Re corded Elsewher e: No Locat ion: Wallaceisrael hany [facility] S ource: EHR Leave Specialist scott: N Practi ce ID: 0001 Parker lable Time: 02:00:00 PM Kalpanamickey Flores [facility] 16:48:21 Benign neoplasm of right ovary [id number] Completed 201701/11/2021 Benign neoplasm of right ovary;Pr actice ID: 0001 Kalpanamickey Flores [facility] 16:48:14 Endometr iosis of ovary [id number] Completed 201701/11/2021 Endometr iosis of ovary;Pr actice ID: [address] [facility] 16:48:23 Endometr iosis of pelvic peritone um [id number] Completed 201701/11/2021 Endometr iosis of pelvic peritone um;Pract ice ID: [address] [facility] 16:48:25 Problem Notes None recorded. Procedures Surgical History Date Name Laterality Status Provider Name and Address Organization Details Recorded Time Date of Last Mammogram completed [facility] 01/11/2021 16:47:47 9 completed [facility] 01/11/2021 16:47:47 8 Date of Last Pap Smear completed [facility] 01/11/2021 16:47:47 Imaging Results Imaging Date Name Status LastModified by Organiz ation Details LastModified Time 11/26/2021 imaging/diag nostic result completed [facility] [address], [place], [address], 12/11/2021 11:43:26 Procedure Notes None recorded. Medical Equipment None Reported. Allergies Allergen ID Allergen Name Allergen Category Reaction Reaction Severity Criticality Documentation Date Start Date Code Code System Note Provider Name and Address Organization Details Recorded Time 71181 Substance with sulfonami de structure and antibacte rial mechanism of action (substanc e) medicatio n Not available Not available Not available 08/28/2020 36725 8003 SNOMED Comme nt: [facility]; Not Available [facility] 0 14:14:56 Medications Name Sig Start Date Stop Date Status Note LastModified by Organization Details LastModified Time metformin 500 mg tablet TK 1 T PO BID 01/11 completed Not Available Not Available Not Available ibuprofen 200 mg capsule take 1 capsule by oral route every 6 hours as needed 06/04 completed Prescrib ed Elsewher e: Yes Loca tion: Hunter leach [facility] odify By: yocasta johansen DateTime : 05/17/20 12 01:30:00 PM Not Available Not Available Not Available Milk of Magnesia 400 mg/5 mL oral suspensio n take 30 millilit er by oral route every day as needed, followed by a full glass (8 oz) of liquid active Prescrib ed Elsewher e: Yes Loca tion: Hunter leach [facility] odify By: roger Leach ncountraman DateTime : 07/02/20 18 03:00:00 PM Not Available Not Available Not Available metformin 850 mg tablet take 1 tablet by oral route 2 times every day with morning and evening meals 01/11 completed Prescrib ed Elsewher e: Yes Loca tion: Hunter leach [facility] odify By: amolivia Leach ncounter DateTime : 07/10/20 17 10:15:00 AM Not Available Not Available Not Available Caltrate- 600 600 mg (as calcium carbonate 1,500 mg) tablet 06/08 completed Prescrib ed Elsewher e: Yes Loca tion: Hunter lecah [facility] odify By: litzy Leach ncounter DateTime : 05/17/20 12 01:30:00 PM Not Available Not Available Not Available ciproflox acin 500 mg tablet TK 1 T PO Q 12 H FOR 7 DAYS 01/11 completed Not Available Not Available Not Available ibuprofen 100 mg tablet take 2 tablet by ORAL route 4 - 6 hours as needed with food 05/10 completed Prescrib ed Elsewher e: Yes Loca tion: Hunter leach [facility] odify By: mis gonzalez DateTime : 04/16/20 11 11:40:22 AM Not Available Not Available Not Available Gas Free Extra Strength 125 mg capsule take 1 capsule by ORAL route as needed after meals or at bedtime not to exceed 4 capsules in 24hrs 05/10 completed Prescrib ed Elsewher e: Yes Loca tion: Hunter leach [facility] odify By: mis gonzalez DateTime : 04/16/20 11 11:40:22 AM Not Available Not Available Not Available Diabetic Tussin DM 10 mg-100 mg/5 mL oral liquid take 10 millilit er by oral route every 4 hours as needed active Prescrib ed Elsewher e: Yes Loca tion: Hunter leach [facility] odify By: roger gonzalez DateTime : 07/02/20 18 03:00:00 PM Not Available Not Available Not Available calcium-m agnesium 300 mg-300 mg tablet 01/11 completed Prescrib ed Elsewher e: Yes Loca tion: Hunter leach [facility] odify By: roger gonzalez DateTime : 07/02/20 18 03:00:00 PM Not Available Not Available Not Available Cipro 500 mg/5 mL oral suspensio n take 5 millilit er (500MG) by oral route every 12 hours 05/23 completed Prescrib ed Elsewher e: No Locat ion: Hunter leach [facility] odify By: cindy valle DateTime : 05/10/20 11 01:00:00 PM Not Available Not Available Not Available Acidophil us capsule 01/11 completed Prescrib ed Elsewher e: Yes Loca tion: Hunter leach [facility] odify By: manish gonzalez DateTime : 08/23/20 17 04:30:00 PM Not Available Not Available Not Available Pepto-Bis mol 262 mg/15 mL oral suspensio n 01/11 completed Prescrib ed Elsewher e: Yes Loca tion: Hunter leach [facility] odify By: tmryan E ncounter DateTime : 07/02/20 18 03:00:00 PM Not Available Not Available Not Available Vitamins and Minerals tablet 01/11 completed Prescrib ed Elsewher e: Yes Loca tion: [facility] By: mis williamuntraman DateTime : 05/10/20 11 01:00:00 PM Not Available Not Available Not Available Multi-Vit with Fluoride and Iron 0.25 mg-10 mg/mL oral drops 05/10 completed Prescrib ed Elsewher e: Yes Loca tion: Hunter leach [facility] odify By: mis Leach ncounter DateTime : 04/16/20 11 11:40:22 AM Not Available Not Available Not Available Rolaids 550 mg-110 mg chewable tablet 05/10 completed Prescrib ed Elsewher e: Yes Loca tion: Hunter leach [facility] odify By: mis Leach ncounter DateTime : 04/16/20 11 11:40:22 AM Not Available Not Available Not Available nitrofura ntoin monohydra te/macroc rystals 100 mg capsule TK 1 C PO Q 12 H FOR 10 DAYS 01/11 completed Not Available Not Available Not Available Systane (PF) 0.4 %-0.3 % eye drops in a dropperet te active Prescrib ed Elsewher e: Yes Loca tion: Hunter leach [facility] odify By: roger Leach ncounter DateTime : 07/03/20 19 02:30:00 PM Not Available Not Available Not Available Aleve active Not Available Not Availa ble Not Available Cough Drops active Not Available Not Available Not Available Acidophil us active Prescrib ed Elsewher e: Yes Loca tion: Hunter leach [facility] odify By: roger Leach ncounter DateTime : 07/03/20 19 02:30:00 PM Not Available Not Available Not Available Vitamin D3 active Not Available Not Available Not Available Thelma-Selt zer Extra Strength active Not Available Not Available Not Available Vitamin B-Complex active Not Available Not Available No t Available Triple Flex Mood, Joint DENNIS-e active Not Available Not Available Not Available One Daily For Women 18 mg-0.4 mg tablet 07/03 completed Prescrib ed Elsewher e: Yes Loca tion: Hunter leach [facility] odify By: roger gonzalez DateTime : 07/10/20 17 10:15:00 AM Not Available Not Available Not Available Multi Vitamin 9 mg iron/15 mL oral liquid 01/11 completed Prescrib ed Elsewher e: Yes Loca tion: Hunter leach [facility] odify By: roger gonzalez DateTime : 07/03/20 19 02:30:00 PM Not Available Not Available Not Available Caltrate plus D 600 mg (carbonat e)-20 mcg (800 unit) chewable tablet 2016 active Prescrib ed Elsewher e: Yes Loca tion: Hunter leach [facility] odify By: manish gonzalez DateTime : 07/10/20 17 10:15:00 AM Not Available Not Available Not Available Centrum Silver Women 8 mg iron-400 mcg-50 mcg tablet active Prescrib ed Elsewher e: Yes Loca tion: Hunter leach [facility] odify By: roger gonzalez DateTime : 07/03/20 19 02:30:00 PM Not Available Not Available Not Available Azo Cranberry 250 mg chewable tablet active Prescrib ed Elsewher e: Yes Loca tion: Hunter leach [facility] odify By: roger gonzalez DateTime : 07/02/20 18 03:00:00 PM Not Available Not Available Not Available Tylenol 325 mg capsule 01/11 completed Prescrib ed Elsewher e: Yes Loca tion: Hunter leach [facility] odify By: roger gonzalez DateTime : 07/02/20 18 03:00:00 PM Not Available Not Available Not Available Vitals Date Recorded Body weight Body mass index (BMI) Body height Systolic blood pressure Diastolic blood pressure Provider Name and Address Organization Details Last Updated DateTime 01/11/2021 017314.9 1 g 37.9 kg/m2 162.56 cm 118 mm[Hg] 79 mm[Hg] Kalpana Sandra [facility] 17:05:41 Social History Question Answer Notes LastModified by Organizat ion Details LastModified Time Do You Have An Advance Directive? No Information not available 01/11/2021 What Is Your Level Of Alcohol Consumption? None Information not available 01/11/2021 Are You Blind Or Do You Have Difficulty Seeing? No Information not available 01/11/2021 What Is Your Level Of Caffeine Consumption? None Information not available 01/11/2021 How Much Tobacco Do You Chew? None Information not available 01/11/2021 In The 14 Days Before Symptom Onset, Have You Had Close Contact With A Laboratory-confir med COVID-19 While That Case Was Ill? No Information not available 01/11/2021 In The 14 Days Before Symptom Onset, Have You Had Close Contact With A Person Who Is Under Investigation For COVID-19 While That Person Was Ill? No Information not available 01/11/2021 Have You Been To An Area Known To Be High Risk For COVID-19? No Information not available 01/11/2021 Are You Deaf Or Do You Have Serious Difficulty Hearing? No Information not available 01/11/2021 What Type Of Diet Are You Following? REGULAR Information not available 01/11/2021 What Is The Highest Grade Or Level Of School You Have Completed Or The Highest Degree You Have Received? 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 No Information not available 01/11/2021 Do You Use Protection During Sex? No Information not available 01/11/2021 Do You Use Your Seat Belt Or Car Seat Routinely? Yes Information not available 01/11/2021 Do You Have Smoke And Carbon Monoxide Detectors In Your Home? Yes Information not available 01/11/2021 At What Age Did You Start Smoking Tobacco? 0 Information not available 01/11/2021 How Much Tobacco Do You Smoke? No Information not available 01/11/2021 Do You Feel Stressed (tense, Restless, Nervous, Or Anxious, Or Unable To Sleep At Night)? [id number] Information not available 01/11/2021 Do You Use Any Illicit Or Recreational Drugs? No Information not available 01/11/2021 Do You Use Sunscreen Routinely? No Information not available 01/11/2021 How Many Years Have You Smoked Tobacco? 0 Information not available 01/11/2021 Have You Used IV Drugs? No Information not available 01/11/2021 Sex: Unknown Functional Status Question Answer Note LastModified by Organization D etails LastModified Time Are you able to walk? YESWOREST Information not available 01/11/2021 What is your exercise level? Moderate Information not available 01/11/2021 Mental Status None recorded. Family History Relationship Description Onset Age of this Age Resolved Age Notes LastModified by Organization Details LastModified Time Mother Hypertensive disorder Not available 2020 15:55:43 Mother Malignant tumor of breast Not available 2020 15:55:58 Mother Malignant lymphoma Not available 2020 15:56:27 Mother Muscle atrophy Not available 2020 15:59:59 Maternal Grandmother Diabetes mellitus Not available 2020 15:56:44 Maternal Grandmother Cerebral hemorrhage Not available 01/11 15:57:08 Maternal Grandmother Osteoporosis Not available 01/11/2021 16:00:57 Brother Diabetes mellitus Not available 2020 15:57:14 Father Diabetes mellitus Not available 2020 15:57:22 Father Carcinoma of prostate Not available 2020 16:01:21 Father Arthritis Not availab le 01/11/2021 16:04:13 Medical History Condition Response Arthritis Y Gynecological History Statement/Question Response Date of Last Mammogram 10/16/2020 Date of LMP 08/22/2020 On BCP's at Conception? N N Was last menstrual period normal Y STIs/STDs N HPV Vaccine N Duration of Flow (days) 3 Current Control Method None Frequency of Cycle (Q days) 3 Sexually Active? N Age of first menstrual cycle 10 Date of Last Pap Smear 06/30/2018 Sexual Problems? N LMP Approximate 03/29/2019 N Obstetrics History GPAL:G 0 P 0 0 0 0 Past Encounters Encounter ID Performer Location Encounter Start Date Encounter Closed Date Diagnosis/Indication Diagnosis SNOMED-CT Code Diagnosis ICD10 Code Diagnosis Note [id number] Rolando Pedraza MD [place] [address] [address] 01/11/2021 16:39:26 01/11/2021 22:14:02 Gynecologic examination 45253844 Z01.419 This patient is here for her annual exam. A thorough history was taken. A physical exam was performed. Age appropriat e routine health screening was ordered, performed, and discussed. Recommende d testing was ordered. She was asked to follow up in one year. She will be informed of any test results. Mammogram - [ Completed] Colonoscop y - [ Cologuard completed] Bone Density - [ not applicable ] Cholestero l - [ done ] Pap - today Health Concerns Section Related Observation LastModified by Organization Detai ls LastModified Time None Recorded Concern Status LastModified by Organization Details LastModified Time None Recorded Advance Directives Directive N: Payers Encounter Date Sequence Insurance Name Policy Number Policy Meza Covered Member ID Meza Member ID Guarantor Name 01/11/2021 1 [place] [id number] Mae S Ben [id number] Mae S Ben Notes Date Note Type Note Provider Name and Address Organization Details Recorded Time 01/11/2021 text/html Annual GYNReport ed bypatient.Menstrua l cycle:Perimenopaus al Urinary symptoms:No hematuria; No incontinence Vulva:No genital lesion Vagina:Normal vaginal discharge Breast:No breast pain; No breast lump; No nipple discharge Current Contraception:Not sexually active Menopausal Symptoms:Hot flashes Psychological symptoms:No depression; No anxiety Preventive measures:Encourage self breast examination; Encourage regular exercise Rolando Pedraza MD [address], [place], [address], [place] [facility] 01/11/2021 20:57:18 OBGyn Episode No OBEpisode recorded.
== END 2024-10-03 07:12 | disposition home or self-care (01) ==
PROVIDERS: PCP Obstetrics & Gynecology; Visit Provider Internal Medicine
DX: R79.89 Other specified abnormal findings of blood chemistry (principal)
CPT/HCPCS: 76705

== ENCOUNTER 2025-06-21 07:15 | Outpatient (CLI) | payer OTHER, SELFPAY ==
[2025-06-21 07:59] LABS: Hematocrit 47.2 % (37.0-47.0); Hemoglobin 15.5 g/dL (12.0-15.0); Mean Corpuscular HGB Conc 32.8 g/dl (32-36); Mean Corpuscular Hemoglobin 29.6 pg (26-34); Mean Corpuscular Volume 90.1 fl (80-100); Platelet Count Result 193 k/mm3 (150-375); Red Blood Count 5.24 M/mm3 (4.2-5.4); White Blood Count 5.2 K/mm3 (4.5-10.0)
[2025-06-21 08:15] LABS: Hemoglobin A1C 5.9 % (<5.7)
[2025-06-21 08:16] LABS: Alanine Aminotransferase 33 U/L (6-35); Albumin Level 4.3 g/dL (3.5-5.1); Alkaline Phosphatase 85 U/L (38-126); Anion Gap 7 mmol/L (4-12); Aspartate Amino Transferase 35 U/L (14-36); Bilirubin,Total 0.5 mg/dL (0.2-1.3); Blood Urea Nitrogen 14 mg/dL (7-17); Calcium 9.2 mg/dL (8.4-10.2); Carbon Dioxide 27 mmol/L (22-30); Chloride 103 mmol/L (98-107); Cholesterol 150 mg/dL (0-200); Estimated Glomerular Filt Rate > 60; Glucose 117 mg/dL (65-110); HDL Direct 61 mg/dL; Potassium 4.2 mmol/L (3.4-5.0); Sodium 137 mmol/L (137-145); Total Protein 7.4 g/dL (6.3-8.2); Triglycerides 58 mg/dL (<150)
[2025-06-21 08:53] LABS: Thyroid Stimulating Hormone 1.150 uIU/mL (0.465-4.680)
[2025-06-21 09:12] LABS: Vitamin B12 962.0 pg/mL (239-931)
== END 2025-06-21 07:16 | disposition home or self-care (01) ==
LOC: ANHLAB 07:17
PROVIDERS: PCP Internal Medicine; Visit Provider Nurse Practitioner
DX: Z00.00 Encounter for general adult medical examination without abnormal findings (principal); R73.9 Hyperglycemia, unspecified; E55.9 Vitamin D deficiency, unspecified; E53.8 Deficiency of other specified B group vitamins
CPT/HCPCS: 36415; 80053; 80061; 82306; 82607; 83036; 84443; 85027

== ENCOUNTER 2025-07-18 11:40 | Outpatient (CLI) | payer OTHER, SELFPAY ==
--- NOTE | ~2025-07-18 | MM_ITS ---
EXAMINATION: MM screening nelida BI w jay HISTORY: Screening TECHNIQUE: Craniocaudal and mediolateral oblique 3-D tomosynthesis images were obtained and synthetic 2-D images were generated. CAD analysis was submitted and interpreted. COMPARISON: Comparison to multiple prior studies sequentially, with oldest reviewed study dated 08/31/2019. BREAST PARENCHYMAL COMPOSITION: Not dense: There are scattered areas of fibroglandular density. FINDINGS: There are developing masses in the lower outer quadrant of the right breast, middle third. The left breast is stable without evidence for malignancy. IMPRESSION: 1. Developing right breast masses. 2. Additional mammographic views and possible breast ultrasound are recommended. BI-RADS Category 0: Incomplete: Needs additional imaging evaluation. Reviewed, dictated and finalized at location O. UTER SYSTEMS CONSULTANT IMPRESSION: 1. Developing right breast masses. 2. Additional mammographic views and possible breast ultrasound are recommended . BI-RADS Category 0: Incomplete: Needs additional imaging evaluation.
== END 2025-07-18 11:41 | disposition home or self-care (01) ==
LOC: MICIMG 11:41
PROVIDERS: PCP Internal Medicine; Visit Provider Obstetrics & Gynecology
DX: Z12.31 Encounter for screening mammogram for malignant neoplasm of breast (principal); R92.8 Other abnormal and inconclusive findings on diagnostic imaging of breast
CPT/HCPCS: 77063; 77067